=== PATIENT | female | born 1990 | race African-American/Black ===

== ENCOUNTER 2016-07-24 10:52 | Emergency (ER) | payer MEDICAID ==
[~2016-07-24] VITALS: Ht 160 cm; Wt 70.0 kg
[~2016-07-24 10:52] MED LIST: FERR-43 PO
[2016-07-24] MEDS ORDERED: ACETAMINOPHEN 325MG TABLET PO ONE (11:15)
[2016-07-24 11:35] LABS: CLARITY URINE CLOUDY (CLEAR); COLOR URINE YELLOW (YELLOW); GLUCOSE URINE NEGATIVE (NEGATIVE); KETONES URINE NEGATIVE (NEGATIVE); LEUKOCYTE ESTERASE URINE 1+ (NEGATIVE); NITRITE URINE NEGATIVE (NEGATIVE); OCCULT BLOOD URINE NEGATIVE (NEGATIVE); PH URINE 5.5 (4.5-8.0); PROTEIN URINE NEGATIVE (NEGATIVE); SPECIFIC GRAVITY URINE 1.027 (1.005-1.030); UROBILINOGEN URINE 0.2 E.U./dL (0.2-1.0)
[2016-07-24 12:28] LABS: BACTERIA URINE NONE SEEN; MUCUS URINE 1+ /lpf (< = 2+); RBC URINE 0-2 /hpf (0-2); SQUAMOUS EPITHELIAL CELL URINE 1+ /lpf (RARE/1+)
[2016-07-24 12:31] LABS: BASOPHILS % 0.5 % (0.0-2.0); EOSINOPHILS % 1.9 % (0.0-5.0); HEMATOCRIT. 36.4 % (36.0-48.0); LYMPHOCYTES % 18.8 % (20.0-50.0); MEAN CORPUSCULAR HEMOGLOBIN 29.6 pg (28.0-32.0); MEAN CORPUSCULAR VOLUME 89.9 fL (81.0-99.0); MEAN PLATELET VOLUME 8.1 fl (7.4-10.4); MONOCYTES % 7.9 % (2.0-8.0); NEUTROPHILS % 70.9 % (40.0-76.0); PLATELET 275 x1000/uL (130-400); RED BLOOD CELL COUNT 4.05 mill/uL (4.2-5.4); RED CELL DISTRIBUTION WIDTH 15.4 % (11.6-14.6); WHITE BLOOD COUNT 9.1 x1000/uL (4.5-11.0)
[2016-07-24 12:37] LABS: ANION GAP 11; CALCIUM 8.2 mg/dL (8.5-10.1); CARBON DIOXIDE 29 mEq/L (21-32); CHLORIDE 103 mEq/L (98-107); INDEX HEMOLYSI 1 (1-3); INDEX ICTERIC 1 (1-4); INDEX LIPEMIC 1 (1-3); UREA NITROGEN BLOOD 12 mg/dL (7-21)
[2016-07-24 12:39] LABS: eGFR > 60 mL/min (>60)
[2016-07-24 12:56] LABS: B-HCG QUANTITATIVE 93062 mIU/mL (<3)
[2016-07-24 13:13] VITALS: BP 98/69
== END 2016-07-24 13:14 | disposition home or self-care (01) ==
LOC: ER 12:06
DX: O20.0 Threatened abortion (principal); O23.41 Unspecified infection of urinary tract in pregnancy, first trimester; O26.891 Other specified pregnancy related conditions, first trimester; J45.909 Unspecified asthma, uncomplicated; Z3A.01 Less than 8 weeks gestation of pregnancy; Z98.890 Other specified postprocedural states
CPT/HCPCS: 36415; 76801; 80048; 81001; 81025; 84702; 85025; 86850; 86900; 99285

== ENCOUNTER 2017-03-05 19:38 | Inpatient (IN) | payer MEDICAID ==
[~2017-03-05] VITALS: Ht 160 cm; Wt 77.1 kg
[2017-03-05] MEDS ORDERED: DEXT 5%/LACTATED RINGERS 1,000 ML IV SCH ×2 (20:45→21:36)
[2017-03-05] MEDS ORDERED: DEXT 5%/LR + PITOCIN 20UNITS/L 1,000 ML IV SCH (21:36)
[2017-03-05] MEDS ORDERED: METHYLERGONOVINE MALEATE 0.2 MG/ML IM PRN (21:45)
[2017-03-05] MEDS ORDERED: NALOXONE HCL 0.4 MG/ML 1ML VIAL IM PRN (21:45)
[2017-03-05] MEDS ORDERED: CARBOPROST TROMETHAMINE 250 MCG/ML AMPUL IM PRN (21:45)
[2017-03-05 22:30] LABS: BASOPHILS % 0.5 % (0.0-2.0); EOSINOPHILS % 1.3 % (0.0-5.0); HEMATOCRIT. 24.8 % (36.0-48.0); HEMOGLOBIN. 7.8 g/dL (12.0-16.0); LYMPHOCYTES % 21.2 % (20.0-50.0); MEAN CORPUSCULAR HEMOGLOBIN 22.8 pg (28.0-32.0); MEAN CORPUSCULAR VOLUME 72.8 fL (81.0-99.0); MEAN PLATELET VOLUME 7.5 fl (7.4-10.4); PLATELET 325 x1000/uL (130-400); RED BLOOD CELL COUNT 3.41 mill/uL (4.2-5.4); RED CELL DISTRIBUTION WIDTH 18.1 % (11.6-14.6)
[2017-03-05 22:35] LABS: CLARITY URINE TURBID (CLEAR); COLOR URINE YELLOW (YELLOW); GLUCOSE URINE NEGATIVE (NEGATIVE); KETONES URINE TRACE (NEGATIVE); LEUKOCYTE ESTERASE URINE 3+ (NEGATIVE); NITRITE URINE POSITIVE (NEGATIVE); OCCULT BLOOD URINE NEGATIVE (NEGATIVE); PROTEIN URINE 1+ (NEGATIVE); SPECIFIC GRAVITY URINE 1.027 (1.005-1.030)
[2017-03-05 22:38] LABS: PARTIAL THROMBOPLASTIN TIME 28.5 sec (23.4-31.0); PROTHROMBIN TIME 10.6 sec (9.4-11.6)
[2017-03-05] MEDS ORDERED: MIDAZOLAM HCL 2 MG/2 ML VIAL ONE (22:52)
[2017-03-05] MEDS ORDERED: MORPHINE SULFATE/PF 1MG/ML 10ML AMP ONE (22:52)
[2017-03-05] MEDS ORDERED: EPHEDRINE SULFATE 50MG/ML VIAL ONE (22:53)
[2017-03-05] MEDS ORDERED: DEXAMETHASONE 4MG/ML 1ML VIAL ONE (22:53)
[2017-03-05] MEDS ORDERED: CEFAZOLIN SODIUM 1000MG/VIAL ONE (22:53)
[2017-03-05] MEDS ORDERED: SODIUM CHLORIDE 0.9% 10ML VIAL ONE (22:53)
[2017-03-05] MEDS ORDERED: OXYTOCIN 10 UNITS/ML 1ML ONE (22:53)
[2017-03-05] MEDS ORDERED: PHENYLEPHRINE HCL 10 MG/ML 1ML (IV VIAL) IV ONE (22:53)
[2017-03-05] MEDS ORDERED: ONDANSETRON HCL 4MG/2ML VIAL ONE (22:53)
[2017-03-05 23:02] LABS: *AMPHETAMINES SCREEN URINE NEGATIVE (NEGATIVE); *BARBITURATES SCREEN URINE NEGATIVE (NEGATIVE); *BENZODIAZEPINES SCREEN URINE NEGATIVE (NEGATIVE); *COCAINE SCREEN URINE NEGATIVE (NEGATIVE); CANNABINOID URINE SCREEN NEGATIVE (NEGATIVE); METHADONE URINE SCREEN NEGATIVE (NEGATIVE); OPIATES URINE SCREEN NEGATIVE (NEGATIVE); PHENCYCLIDINE URINE SCREEN NEGATIVE (NEGATIVE)
[2017-03-05 23:16] LABS: HEPATITIS B SURFACE ANTIGEN NEGATIVE; RUBELLA IGG 4.7 IU/mL (4.99-10)
[2017-03-06] VITALS (7 sets, daily range): BP systolic 102–118; BP diastolic 54–63
[2017-03-06] MEDS ORDERED: HYDROMORPHONE HCL/PF 2MG/ML CPJ IM PRN (00:15)
[2017-03-06] MEDS ORDERED: HYDROCODONE/ACETAMINOPHEN 5/325MG TABLET PO PRN (00:15)
[2017-03-06] MEDS ORDERED: IBUPROFEN 400MG TABLET PO PRN (00:15)
[2017-03-06] MEDS ORDERED: DEXT 5%/LR + PITOCIN 20UNITS/L 1,000 ML IV SCH (00:15)
[2017-03-06] MEDS ORDERED: RHO(D) IMMUNE GLOBULIN 300 MCG/SYR IM PRN (00:15)
[2017-03-06] MEDS ORDERED: BISACODYL 10MG SUPP PR PRN (00:15)
[2017-03-06] MEDS ORDERED: NALOXONE HCL 0.4 MG/ML 1ML VIAL IV PRN (00:45)
[2017-03-06] MEDS ORDERED: DIPHENHYDRAMINE 50MG/ML VIAL IV PRN (00:45)
[2017-03-06] MEDS ORDERED: ONDANSETRON HCL 4MG/2ML VIAL IV PRN (00:45)
[2017-03-06] MEDS: KETOROLAC 30MG/ML VIAL IV SCH ×2 (02:55→12:21)
[2017-03-06 08:28] LABS: BASOPHILS % 0.2 % (0.0-2.0); EOSINOPHILS % 0.1 % (0.0-5.0); HEMATOCRIT. 27.3 % (36.0-48.0); HEMOGLOBIN. 8.3 g/dL (12.0-16.0); LYMPHOCYTES % 8.8 % (20.0-50.0); MEAN CORPUSCULAR HEMOGLOBIN 22.4 pg (28.0-32.0); MEAN CORPUSCULAR VOLUME 73.6 fL (81.0-99.0); MEAN PLATELET VOLUME 8.1 fl (7.4-10.4); MONOCYTES % 3.9 % (2.0-8.0); PLATELET 332 x1000/uL (130-400); RED BLOOD CELL COUNT 3.71 mill/uL (4.2-5.4); RED CELL DISTRIBUTION WIDTH 18.1 % (11.6-14.6)
[2017-03-06] MEDS ORDERED: FENTANYL CITRATE/PF 50MCG/ML 2ML VIAL ONE (14:29)
[2017-03-06] MEDS ORDERED: MIDAZOLAM HCL 2 MG/2 ML VIAL ONE (14:31)
[2017-03-06] MEDS ORDERED: MORPHINE SULFATE/PF 1MG/ML 10ML AMP ONE (14:31)
[2017-03-06] MEDS ORDERED: SODIUM CHLORIDE 0.9% 10ML VIAL ONE (14:48)
[2017-03-06] MEDS ORDERED: ONDANSETRON HCL 4MG/2ML VIAL ONE (14:48)
[2017-03-06] MEDS ORDERED: CEFAZOLIN SODIUM 1000MG/VIAL ONE (14:48)
[2017-03-06] MEDS ORDERED: SODIUM BICARBONATE 4% (2.4MEQ) 5ML VIAL IV ONE (14:48)
[2017-03-06] MEDS ORDERED: DEXAMETHASONE 4MG/ML 1ML VIAL ONE (14:48)
[2017-03-06] MEDS ORDERED: EPHEDRINE SULFATE 50MG/ML VIAL ONE (14:48)
[2017-03-06] MEDS ORDERED: OXYTOCIN 10 UNITS/ML 1ML ONE (14:48)
[2017-03-06] MEDS ORDERED: PHENYLEPHRINE HCL 10 MG/ML 1ML (IV VIAL) IV ONE (14:48)
[2017-03-06] MEDS ORDERED: ESMOLOL HCL 10MG/ML 10ML VIAL IV ONE (14:55)
[2017-03-06] MEDS: IBUPROFEN 800MG TABLET PO PRN (17:00)
[2017-03-07 03:45] VITALS: BP 105/60
[2017-03-07] MEDS: IBUPROFEN 800MG TABLET PO PRN ×3 (04:25→20:05)
[2017-03-07 08:00] VITALS: BP 101/58
[2017-03-07 15:55] VITALS: BP 104/64
[2017-03-07 19:40] VITALS: BP 99/53
[2017-03-07 23:40] VITALS: BP 103/47
[2017-03-08 05:00] VITALS: BP 102/51
[2017-03-08] MEDS: IBUPROFEN 800MG TABLET PO PRN (08:01)
[2017-03-08 08:20] VITALS: BP 110/70
== END 2017-03-08 13:30 | disposition home or self-care (01) | DRG 540 ==
LOC: L&D 19:38 → OBSVTOIN 19:38 → 7EST PP/OB 03-06 03:45
PROVIDERS: ADMIT Obstetrics & Gynecology; ATTEND Obstetrics & Gynecology
PROC: 10D00Z1 Extraction of Products of Conception, Low, Open Approach (ICD-10-PCS; principal; 2017-03-06)
DX: O34.211 Maternal care for low transverse scar from previous cesarean delivery (principal); D64.9 Anemia, unspecified; O69.81X0 Labor and delivery complicated by cord around neck, without compression, not applicable or unspecified; O99.03 Anemia complicating the puerperium; Z37.0 Single live birth; Z3A.38 38 weeks gestation of pregnancy; Z82.49 Family history of ischemic heart disease and other diseases of the circulatory system
CPT/HCPCS: 36415; 80305; 81001; 85025; 85610; 85730; 86592; 86703; 86762; 86850; 86900; 87340; 88307; 97162; A4216; G0378; J0171; J0690; J1100; J1885; J2250; J2274; J2370; J2405; J2590; J3010; J3490; J7120